=== PATIENT | male | born 1970 | race Two or more races ===

== ENCOUNTER 2023-05-12 19:24 | Inpatient (IN) | payer MEDICAID, OTHER ==
[~2023-05-12] VITALS: Ht 182.9 cm; Wt 171.0 kg
[2023-05-12 19:33] VITALS: PULSE 114; O2SAT 100
[2023-05-12 20:25] LABS: Basophils # (auto) 0.1 10 ^3/uL (0-0.2); Basophils % (auto) 0.9 % (0.0-2.0); Eosinophils # (auto) 0.3 10 ^3/uL (0-0.8); Eosinophils % (auto) 2.9 % (0.0-7.0); Hematocrit 48.4 % (41.0-53.0); Hemoglobin 15.6 g/dL (13.5-17.5); Lymphocytes # (auto) 0.4 10 ^3/uL (0.4-5.4); Lymphocytes % (auto) 4.6 % (10.0-50.0); Mean Corpuscular Hemoglobin 27.5 pg (28.0-32.0); Mean Corpuscular Hgb Conc. 32.3 g/dL (32.0-36.0); Mean Corpuscular Volume 85.3 fL (80.0-100.0); Monocytes # (auto) 0.6 10 ^3/uL (0-1.3); Monocytes % (auto) 6.6 % (0.0-12.0); Neutrophils # (auto) 7.5 10 ^3/uL (1.6-8.6); Nucleated Red Blood Cells % 0.1 %; Red Blood Cells 5.67 10^6/uL (4.5-5.90); White Blood Cell 8.8 10^3/uL (4.4-10.8)
[2023-05-12 20:39] LABS: INR 1.1 (0.9-1.15); Partial Thromboplastin Time 34.7 SEC (24.5-34.5); Prothrombin Time 11.5 sec (9.3-11.8)
[2023-05-12 20:41] LABS: Alanine Aminotransferase 33 U/L (7-40); Albumin 4.2 g/dL (3.2-4.8); Alkaline Phosphatase 116 U/L (46-116); Anion Gap 5 (5-15); Aspartate Aminotransferase 29 U/L (13-40); BUN/Creatinine Ratio 19.3 (10.0-20.0); Blood Urea Nitrogen 26 mg/dL (9-23); Calcium 9.1 mg/dL (8.7-10.4); Carbon Dioxide 31 mmol/L (20-30); Chloride 103 mmol/L (98-107); Glucose 131 mg/dL (74-106); Magnesium 2.2 mg/dL (1.6-2.6); Potassium 4.7 mmol/L (3.5-5.1); Sodium 139 mmol/L (136-145)
[2023-05-12 20:42] LABS: Bilirubin, Total 1.2 mg/dL (0.2-1.0); Total Protein 6.8 g/dL (5.7-8.2)
[2023-05-12 21:03] VITALS: BP 156/76; PULSE 129; O2SAT 100
[2023-05-12 21:11] LABS: Base Excess 0.1 mmol/L (-2.0-2.0)
[2023-05-12] MEDS ORDERED: ONDANSETRON HCL 4 MG/2 ML VIAL IV ONE (21:45)
[2023-05-12] MEDS ORDERED: IPRATROPIUM BROM 0.5 MG/2.5ML INH SOL NEB ONE (21:45)
[2023-05-12] MEDS ORDERED: MORPHINE SULFATE 4 MG/ML SYR/VIAL IV ONE (21:45)
[2023-05-12] MEDS ORDERED: SODIUM CHLORIDE 0.9% 1,000 ML IV ONE (21:45)
[2023-05-12] MEDS ORDERED: ALBUTEROL MEDNEB 2.5 mg/3ml NEB NEB ONE (21:45)
[2023-05-12 21:55] VITALS: PULSE 118; RESP 24; O2SAT 99
[2023-05-12] MEDS: MAGNESIUM SULFATE 1GM/100ML 100 ML IV SCH (22:09)
[2023-05-12 22:36] VITALS: PULSE 118; RESP 28; O2SAT 99
[2023-05-13] VITALS (10 sets, daily range): BP systolic 117–158; BP diastolic 58–103; PULSE 92–140; RESP 22–24; TEMP 98.6; O2SAT 94–100
[2023-05-13] MEDS: MAGNESIUM SULFATE 1GM/100ML 100 ML IV SCH (00:43)
[2023-05-13] MEDS ORDERED: MORPHINE SULFATE INJ 2 MG/ml SYRG IV PRN (01:00)
[2023-05-13] MEDS ORDERED: TEMAZEPAM 15 MG CAP PO PRN (01:00)
[2023-05-13] MEDS ORDERED: NITROGLYCERIN 0.4 MG SL TAB SL PRN (01:00)
[2023-05-13] MEDS ORDERED: ONDANSETRON HCL 4 MG/2 ML VIAL IV PRN (01:00)
[2023-05-13] MEDS ORDERED: ACETAMINOPHEN 325 MG TAB PO PRN (01:00)
[2023-05-13] MEDS ORDERED: dilTIAZem 25 MG/5 ML VIAL IV ONE (03:30)
[2023-05-13] MEDS ORDERED: FUROSEMIDE 40 MG/4 ML VIAL IV ONE (06:45)
[2023-05-13] MEDS: LEVOTHYROXINE SODIUM 25 MCG TAB PO SCH (07:05)
[2023-05-13] MEDS: IPRATROPIUM BROM 0.5 MG/2.5ML INH SOL NEB PRN ×2 (07:08→22:36)
[2023-05-13] MEDS: ALBUTEROL MEDNEB 2.5 mg/3ml NEB NEB PRN ×2 (07:08→22:36)
[2023-05-13] MEDS ORDERED: AMIODARONE 450mg/250ml AE 250 ML IV SCH (08:15)
[2023-05-13] MEDS ORDERED: AMIODARONE BOLUS KIT 100 ML IV ONE (08:15)
[2023-05-13] MEDS: METOPROLOL SUCCINATE XL 50 MG TAB PO SCH (09:01)
[2023-05-13] MEDS: APIXABAN 5 MG TAB PO SCH ×2 (09:01→22:38)
[2023-05-13] MEDS: SERTRALINE HCL 50 MG TAB PO SCH (09:02)
[2023-05-13] MEDS ORDERED: FUROSEMIDE 40 MG TAB PO SCH (10:00)
[2023-05-13] MEDS ORDERED: ASPirin 81 mg TAB PO SCH (10:00)
[2023-05-13] MEDS ORDERED: SPIRONOLACTONE 25 MG TAB PO ONE (11:15)
[2023-05-13] MEDS ORDERED: AZITHROMYCIN 500MG/ 250ML 250 ML IV ONE (11:30)
[2023-05-13 11:39] LABS: Basophils # (auto) 0.1 10 ^3/uL (0-0.2); Basophils % (auto) 1.2 % (0.0-2.0); Eosinophils # (auto) 0.1 10 ^3/uL (0-0.8); Eosinophils % (auto) 1.5 % (0.0-7.0); Hematocrit 47.4 % (41.0-53.0); Lymphocytes # (auto) 0.6 10 ^3/uL (0.4-5.4); Lymphocytes % (auto) 6.5 % (10.0-50.0); Mean Corpuscular Hemoglobin 27.2 pg (28.0-32.0); Mean Corpuscular Hgb Conc. 31.7 g/dL (32.0-36.0); Mean Corpuscular Volume 85.7 fL (80.0-100.0); Monocytes # (auto) 0.9 10 ^3/uL (0-1.3); Monocytes % (auto) 9.4 % (0.0-12.0); Neutrophils % (auto) 81.4 % (37.0-80.0); Nucleated Red Blood Cells % 0.7 %; Red Blood Cells 5.54 10^6/uL (4.5-5.90); Red Cell Distribution Width 19.7 % (11.8-14.3); White Blood Cell 9.8 10^3/uL (4.4-10.8)
[2023-05-13] MEDS: ASPirin 81 mg TAB PO SCH (11:45)
[2023-05-13] MEDS: FUROSEMIDE 20 MG/2 ML VIAL IV SCH ×2 (11:48→18:46)
[2023-05-13 11:52] LABS: Urine Bacteria NONE SEEN /hpf (None Seen); Urine Blood Negative /uL (Negative); Urine Clarity Clear (Clear); Urine Color Yellow (Yellow); Urine Protein, UAD 2+ (Negative); Urine Specific Gravity 1.017 (1.001-1.035); Urine Urobilinogen Normal (Negative); Urine WBC 2 /hpf (0 - 3); Urine pH 5.5 (5.0-8.0)
[2023-05-13 12:00] LABS: Calcium 8.9 mg/dL (8.5-10.1); Chloride 102 mmol/L (98-107); Potassium 4.7 mmol/L (3.5-5.1); Sodium 135 mmol/L (136-145)
[2023-05-13 12:01] LABS: Anion Gap 8 (5-15); Carbon Dioxide 25 mmol/L (20-30)
[2023-05-13 12:06] LABS: BUN/Creatinine Ratio 20.5 (10.0-20.0); Blood Urea Nitrogen 33 mg/dL (9-23); Glucose 226 mg/dL (74-106)
[2023-05-13] MEDS: AMIODARONE 450mg/250ml AE 250 ML IV SCH (14:28)
[2023-05-13] MEDS: DOXYCYCLINE 100MG/250ML 250 ML IV SCH (14:45)
[2023-05-13] MEDS ORDERED: ACETAMINOPHEN 500 MG TAB PO PRN (15:30)
[2023-05-13] MEDS ORDERED: HYDROcodone-ACET 5/325MG TAB PO PRN (15:30)
[2023-05-13] MEDS ORDERED: FUROSEMIDE 20 MG/2 ML VIAL IV SCH (18:00)
[2023-05-13] MEDS: HYDROcodone-ACET 10/325MG TAB PO PRN (22:37)
[2023-05-13] MEDS: methylPREDNISolone SOD SUCC 40 MG/ML VL IV SCH (22:38)
[2023-05-13] MEDS: SACUBITRIL-VALSARTAN 24mg/26mg TAB PO SCH (22:39)
[2023-05-13] MEDS: ATORVASTATIN 20 MG TAB PO SCH (22:39)
[2023-05-14] VITALS (8 sets, daily range): BP systolic 134–145; BP diastolic 74–97; PULSE 82–103; RESP 18–22; O2SAT 94–100
[2023-05-14] MEDS: DOXYCYCLINE 100MG/250ML 250 ML IV SCH ×2 (00:39→12:13)
[2023-05-14] MEDS: AMIODARONE 450mg/250ml AE 250 ML IV SCH ×2 (05:41→10:56)
[2023-05-14 06:41] LABS: Basophils # (auto) 0 10 ^3/uL (0-0.2); Basophils % (auto) 0.5 % (0.0-2.0); Eosinophils # (auto) 0 10 ^3/uL (0-0.8); Eosinophils % (auto) 0.2 % (0.0-7.0); Hematocrit 46.6 % (41.0-53.0); Lymphocytes # (auto) 0.4 10 ^3/uL (0.4-5.4); Lymphocytes % (auto) 5.6 % (10.0-50.0); Mean Corpuscular Hemoglobin 27.4 pg (28.0-32.0); Mean Corpuscular Hgb Conc. 32.2 g/dL (32.0-36.0); Mean Corpuscular Volume 85.1 fL (80.0-100.0); Monocytes # (auto) 0.2 10 ^3/uL (0-1.3); Neutrophils % (auto) 91.7 % (37.0-80.0); Nucleated Red Blood Cells % 0.9 %; Red Blood Cells 5.48 10^6/uL (4.5-5.90); Red Cell Distribution Width 19.7 % (11.8-14.3); White Blood Cell 7.6 10^3/uL (4.4-10.8)
[2023-05-14 06:59] LABS: Alanine Aminotransferase 28 U/L (7-40); Albumin 4.3 g/dL (3.2-4.8); Alkaline Phosphatase 114 U/L (46-116); Anion Gap 8 (5-15); Aspartate Aminotransferase 21 U/L (13-40); BUN/Creatinine Ratio 22.8 (10.0-20.0); Blood Urea Nitrogen 42 mg/dL (9-23); Calcium 8.8 mg/dL (8.7-10.4); Carbon Dioxide 24 mmol/L (20-30); Chloride 103 mmol/L (98-107); Glucose 247 mg/dL (74-106); Potassium 4.9 mmol/L (3.5-5.1); Sodium 135 mmol/L (136-145)
[2023-05-14] MEDS: FUROSEMIDE 20 MG/2 ML VIAL IV SCH ×2 (06:59→18:25)
[2023-05-14] MEDS: LEVOTHYROXINE SODIUM 25 MCG TAB PO SCH (06:59)
[2023-05-14] MEDS: HYDROcodone-ACET 10/325MG TAB PO PRN (07:08)
[2023-05-14 07:37] LABS: Base Excess -1.9 mmol/L (-2.0-2.0)
[2023-05-14] MEDS ORDERED: AZITHROMYCIN 500MG/ 250ML 250 ML IV SCH (10:00)
[2023-05-14] MEDS: methylPREDNISolone SOD SUCC 40 MG/ML VL IV SCH ×2 (10:56→22:37)
[2023-05-14] MEDS: SERTRALINE HCL 50 MG TAB PO SCH (10:57)
[2023-05-14] MEDS: APIXABAN 5 MG TAB PO SCH ×2 (10:57→23:20)
[2023-05-14] MEDS: ASPirin 81 mg TAB PO SCH (10:58)
[2023-05-14] MEDS: SPIRONOLACTONE 25 MG TAB PO SCH (10:58)
[2023-05-14] MEDS: METOPROLOL SUCCINATE XL 50 MG TAB PO SCH (11:00)
[2023-05-14] MEDS: SACUBITRIL-VALSARTAN 24mg/26mg TAB PO SCH ×2 (11:08→22:38)
[2023-05-14] MEDS: IPRATROPIUM BROM 0.5 MG/2.5ML INH SOL NEB PRN (18:39)
[2023-05-14] MEDS: ALBUTEROL MEDNEB 2.5 mg/3ml NEB NEB PRN (18:39)
[2023-05-14] MEDS: ATORVASTATIN 20 MG TAB PO SCH (22:38)
[2023-05-15] VITALS (17 sets, daily range): BP systolic 129–136; BP diastolic 71–82; PULSE 52–110; RESP 18–24; TEMP 97.4–98; O2SAT 91–100
[2023-05-15] MEDS: AMIODARONE 450mg/250ml AE 250 ML IV SCH (03:22)
[2023-05-15] MEDS: FUROSEMIDE 20 MG/2 ML VIAL IV SCH ×2 (06:00→17:25)
[2023-05-15 06:30] LABS: Anion Gap 7 (5-15); Carbon Dioxide 27 mmol/L (20-30); Chloride 100 mmol/L (98-107); Potassium 4.8 mmol/L (3.5-5.1); Sodium 134 mmol/L (136-145)
[2023-05-15 06:31] LABS: Calcium 9.2 mg/dL (8.5-10.1)
[2023-05-15 06:35] LABS: Basophils # (auto) 0 10 ^3/uL (0-0.2); Basophils % (auto) 0.2 % (0.0-2.0); Eosinophils # (auto) 0 10 ^3/uL (0-0.8); Hematocrit 43.7 % (41.0-53.0); Hemoglobin 14.3 g/dL (13.5-17.5); Lymphocytes # (auto) 0.5 10 ^3/uL (0.4-5.4); Lymphocytes % (auto) 6.1 % (10.0-50.0); Mean Corpuscular Hemoglobin 27.5 pg (28.0-32.0); Mean Corpuscular Hgb Conc. 32.7 g/dL (32.0-36.0); Mean Corpuscular Volume 84.2 fL (80.0-100.0); Monocytes # (auto) 0.2 10 ^3/uL (0-1.3); Monocytes % (auto) 2.2 % (0.0-12.0); Neutrophils # (auto) 7.1 10 ^3/uL (1.6-8.6); Neutrophils % (auto) 91.5 % (37.0-80.0); Nucleated Red Blood Cells % 0.6 %; Red Blood Cells 5.19 10^6/uL (4.5-5.90); Red Cell Distribution Width 18.9 % (11.8-14.3); White Blood Cell 7.8 10^3/uL (4.4-10.8)
[2023-05-15 06:36] LABS: BUN/Creatinine Ratio 26.1 (10.0-20.0); Blood Urea Nitrogen 49 mg/dL (9-23)
[2023-05-15] MEDS: LEVOTHYROXINE SODIUM 25 MCG TAB PO SCH (06:58)
[2023-05-15 07:01] LABS: Glucose 369 mg/dL (74-106)
[2023-05-15] MEDS: HYDROcodone-ACET 10/325MG TAB PO PRN ×3 (07:03→21:40)
[2023-05-15] MEDS ORDERED: ISOS5TAB PO (07:28)
[2023-05-15] MEDS ORDERED: APIX5TAB PO (07:28)
[2023-05-15] MEDS ORDERED: FURO40TA4 PO (07:28)
[2023-05-15] MEDS ORDERED: METO-289 PO (07:28)
[2023-05-15] MEDS ORDERED: POTA10TA51 PO (07:28)
[2023-05-15] MEDS ORDERED: DAPA1TAB4 PO (07:28)
[2023-05-15] MEDS ORDERED: HYDR-4798 PO (07:28)
[2023-05-15] MEDS ORDERED: SERT25TA84 PO (07:28)
[2023-05-15] MEDS ORDERED: SACU1TAB PO (07:28)
[2023-05-15] MEDS: IPRATROPIUM BROM 0.5 MG/2.5ML INH SOL NEB PRN ×3 (07:32→22:07)
[2023-05-15] MEDS: ALBUTEROL MEDNEB 2.5 mg/3ml NEB NEB PRN ×3 (07:32→22:08)
[2023-05-15] MEDS: ASPirin 81 mg TAB PO SCH (09:19)
[2023-05-15] MEDS: methylPREDNISolone SOD SUCC 40 MG/ML VL IV SCH ×2 (09:19→21:39)
[2023-05-15] MEDS: APIXABAN 5 MG TAB PO SCH ×2 (09:19→21:39)
[2023-05-15] MEDS: SERTRALINE HCL 50 MG TAB PO SCH (09:19)
[2023-05-15] MEDS: METOPROLOL SUCCINATE XL 50 MG TAB PO SCH (09:19)
[2023-05-15] MEDS: SPIRONOLACTONE 25 MG TAB PO SCH (09:19)
[2023-05-15 10:33] LABS: Platelet Estimate Decreased
[2023-05-15 10:34] LABS: Large Platelets FEW
[2023-05-15] MEDS: DOXYCYCLINE 100MG/250ML 250 ML IV SCH ×2 (12:04)
[2023-05-15] MEDS ORDERED: ALBUTEROL SULF 2.5 MG/0.5ML(0.5%) NEB SOLN ONE ×2 (14:00→22:07)
[2023-05-15] MEDS ORDERED: DEXTROSE (50%) 50ML SYRG IV PRN (20:45)
[2023-05-15] MEDS: AMIODARONE HCL 200 MG TAB PO SCH (21:39)
[2023-05-15] MEDS: ATORVASTATIN 20 MG TAB PO SCH (21:39)
[2023-05-15] MEDS: ACCU-CHEK COMFORT CURVE STRIP VI SCH (21:40)
[2023-05-15] MEDS: InsuLIN REG 1unit/0.01ml Soln (100units/ml) SC SCH (21:45)
[2023-05-16] VITALS (11 sets, daily range): BP systolic 121–134; BP diastolic 41–94; PULSE 53–102; RESP 18–22; TEMP 36.7; O2SAT 94–99
[2023-05-16] MEDS: DOXYCYCLINE 100MG/250ML 250 ML IV SCH (02:01)
[2023-05-16] MEDS ORDERED: ALBUTEROL SULF 2.5 MG/0.5ML(0.5%) NEB SOLN ONE (05:56)
[2023-05-16] MEDS: ACCU-CHEK COMFORT CURVE STRIP VI SCH ×2 (06:36→11:54)
[2023-05-16] MEDS: FUROSEMIDE 20 MG/2 ML VIAL IV SCH (06:36)
[2023-05-16] MEDS: HYDROcodone-ACET 10/325MG TAB PO PRN (06:37)
[2023-05-16] MEDS: LEVOTHYROXINE SODIUM 25 MCG TAB PO SCH (06:37)
[2023-05-16] MEDS: InsuLIN REG 1unit/0.01ml Soln (100units/ml) SC SCH ×2 (06:42→11:30)
[2023-05-16 06:52] LABS: Anion Gap 8 (5-15); Carbon Dioxide 24 mmol/L (20-30); Chloride 98 mmol/L (98-107); Sodium 130 mmol/L (136-145)
[2023-05-16 06:53] LABS: Calcium 9.2 mg/dL (8.5-10.1)
[2023-05-16 06:58] LABS: BUN/Creatinine Ratio 27.4 (10.0-20.0); Blood Urea Nitrogen 45 mg/dL (9-23); Glucose 346 mg/dL (74-106)
[2023-05-16 07:02] LABS: Basophils # (auto) 0 10 ^3/uL (0-0.2); Basophils % (auto) 0.1 % (0.0-2.0); Eosinophils # (auto) 0 10 ^3/uL (0-0.8); Hematocrit 42.4 % (41.0-53.0); Hemoglobin 13.8 g/dL (13.5-17.5); Lymphocytes # (auto) 0.5 10 ^3/uL (0.4-5.4); Lymphocytes % (auto) 5.8 % (10.0-50.0); Mean Corpuscular Hemoglobin 27.4 pg (28.0-32.0); Mean Corpuscular Hgb Conc. 32.6 g/dL (32.0-36.0); Mean Corpuscular Volume 83.9 fL (80.0-100.0); Monocytes # (auto) 0.2 10 ^3/uL (0-1.3); Neutrophils # (auto) 8.7 10 ^3/uL (1.6-8.6); Neutrophils % (auto) 92.1 % (37.0-80.0); Nucleated Red Blood Cells % 0.3 %; Red Blood Cells 5.06 10^6/uL (4.5-5.90); Red Cell Distribution Width 18.5 % (11.8-14.3); White Blood Cell 9.4 10^3/uL (4.4-10.8)
[2023-05-16] MEDS: ALBUTEROL MEDNEB 2.5 mg/3ml NEB NEB PRN (07:41)
[2023-05-16] MEDS: IPRATROPIUM BROM 0.5 MG/2.5ML INH SOL NEB PRN (07:41)
[2023-05-16] MEDS: AMIODARONE HCL 200 MG TAB PO SCH (08:59)
[2023-05-16] MEDS: APIXABAN 5 MG TAB PO SCH (08:59)
[2023-05-16] MEDS: methylPREDNISolone SOD SUCC 40 MG/ML VL IV SCH (08:59)
[2023-05-16] MEDS: SPIRONOLACTONE 25 MG TAB PO SCH (08:59)
[2023-05-16] MEDS: ASPirin 81 mg TAB PO SCH (09:00)
[2023-05-16] MEDS: SERTRALINE HCL 50 MG TAB PO SCH (09:00)
[2023-05-16] MEDS: METOPROLOL SUCCINATE XL 50 MG TAB PO SCH (09:00)
[2023-05-16] MEDS ORDERED: GUAI-41 PO (11:56)
== END 2023-05-16 13:39 | disposition home or self-care (01) | DRG 133 ==
LOC: ER 19:24 → EDBD 19:24 → TELE 05-13 00:58 → TELE-WESTW 05-14 21:59
PROVIDERS: ADMIT Internal Medicine; ATTEND Student in an Organized Health Care Education/Training Program
PROC: 5A09357 Assistance with Respiratory Ventilation, Less than 24 Consecutive Hours, Continuous Positive Airway Pressure (ICD-10-PCS; principal; 2023-05-12)
PROC: 5A09357 Assistance with Respiratory Ventilation, Less than 24 Consecutive Hours, Continuous Positive Airway Pressure (ICD-10-PCS; 2023-05-13)
PROC: 5A09357 Assistance with Respiratory Ventilation, Less than 24 Consecutive Hours, Continuous Positive Airway Pressure (ICD-10-PCS; 2023-05-14)
PROC: 5A09357 Assistance with Respiratory Ventilation, Less than 24 Consecutive Hours, Continuous Positive Airway Pressure (ICD-10-PCS; 2023-05-15)
PROC: 5A09357 Assistance with Respiratory Ventilation, Less than 24 Consecutive Hours, Continuous Positive Airway Pressure (ICD-10-PCS; 2023-05-16)
DX: J96.21 Acute and chronic respiratory failure with hypoxia (principal); N17.0 Acute kidney failure with tubular necrosis; I21.A1 Myocardial infarction type 2; I50.23 Acute on chronic systolic (congestive) heart failure; Z68.43 Body mass index [BMI] 50.0-59.9, adult; I13.0 Hypertensive heart and chronic kidney disease with heart failure and stage 1 through stage 4 chronic kidney disease, or unspecified chronic kidney disease; J44.1 Chronic obstructive pulmonary disease with (acute) exacerbation; E66.2 Morbid (severe) obesity with alveolar hypoventilation; E11.22 Type 2 diabetes mellitus with diabetic chronic kidney disease; I48.91 Unspecified atrial fibrillation; E78.5 Hyperlipidemia, unspecified; N18.30 Chronic kidney disease, stage 3 unspecified
CPT/HCPCS: 36415; 36600; 71045; 80048; 80053; 81001; 82805; 82962; 83735; 83880; 84484; 85025; 85379; 85610; 85730; 87081; 93005; 94640; 94660; G0378; J1815; J2405; J3490

== ENCOUNTER 2023-06-29 23:07 | Inpatient (IN) | payer MEDICAID ==
[~2023-06-29] VITALS: Ht 182.9 cm; Wt 173.0 kg
[~2023-06-29 23:07] MED LIST: APIX5TAB PO; DAPA1TAB4 PO; FURO40TA4 PO; GUAI-41 PO; HYDR-4798 PO; ISOS5TAB PO; METO-289 PO; POTA10TA51 PO; SACU1TAB PO; SERT25TA84 PO
[2023-06-29 23:58] LABS: Chloride 105 mmol/L (98-107); Potassium 4.1 mmol/L (3.5-5.1); Sodium 139 mmol/L (136-145)
[2023-06-29 23:59] LABS: Anion Gap 5 (5-15); Carbon Dioxide 29 mmol/L (20-30)
[2023-06-30] LABS: Basophils # (auto) 0.1 10 ^3/uL (0-0.2); Eosinophils # (auto) 0.7 10 ^3/uL (0-0.8); Eosinophils % (auto) 7.6 % (0.0-7.0); Hematocrit 46.4 % (41.0-53.0); Hemoglobin 15.1 g/dL (13.5-17.5); Lymphocytes # (auto) 1.4 10 ^3/uL (0.4-5.4); Lymphocytes % (auto) 15.5 % (10.0-50.0); Mean Corpuscular Hemoglobin 27.7 pg (28.0-32.0); Mean Corpuscular Hgb Conc. 32.5 g/dL (32.0-36.0); Mean Corpuscular Volume 85.5 fL (80.0-100.0); Monocytes # (auto) 0.5 10 ^3/uL (0-1.3); Monocytes % (auto) 5.5 % (0.0-12.0); Neutrophils # (auto) 6.3 10 ^3/uL (1.6-8.6); Neutrophils % (auto) 70.4 % (37.0-80.0); Nucleated Red Blood Cells % 0.7 %; Red Blood Cells 5.43 10^6/uL (4.5-5.90); White Blood Cell 8.9 10^3/uL (4.4-10.8)
[2023-06-30 00:04] LABS: Blood Urea Nitrogen 20 mg/dL (9-23); Glucose 158 mg/dL (74-106)
[2023-06-30 00:15] LABS: Red Cell Distribution Width 21.9 % (11.8-14.3)
[2023-06-30 00:16] LABS: INR 1.12 (0.9-1.15); Partial Thromboplastin Time 36.7 SEC (24.5-34.5); Prothrombin Time 11.7 sec (9.3-11.8)
[2023-06-30] MEDS ORDERED: ONDANSETRON HCL 4 MG/2 ML VIAL IV PRN (09:30)
[2023-06-30] MEDS ORDERED: ACETAMINOPHEN 325 MG TAB PO PRN (09:30)
[2023-06-30] MEDS ORDERED: DOCUSATE SOD 100 MG CAP PO PRN (09:30)
[2023-06-30] MEDS ORDERED: ALBUTEROL SULF 2.5 MG/0.5ML(0.5%) NEB SOLN NEB PRN (09:45)
[2023-06-30] MEDS ORDERED: IPRATROPIUM BROM 0.5 MG/2.5ML INH SOL NEB PRN (09:45)
[2023-06-30] MEDS ORDERED: SODIUM CHLORIDE 0.9% 1,000 ML IV ONE (09:45)
[2023-06-30] MEDS ORDERED: ATOR40TA52 PO (09:46)
[2023-06-30] MEDS ORDERED: SACUBITRIL-VALSARTAN 24mg/26mg TAB PO SCH (10:00)
[2023-06-30 10:40] VITALS: O2SAT 97
[2023-06-30 11:03] VITALS: BP 127/94; PULSE 56; RESP 18; TEMP 98.3; O2SAT 97
[2023-06-30] MEDS: METOPROLOL SUCCINATE XL 50 MG TAB PO SCH (12:04)
[2023-06-30] MEDS: ENOXAPARIN SOD 40 MG/0.4 ML SYRINGE SC SCH (12:05)
[2023-06-30 12:08] VITALS: PULSE 78; RESP 16; O2SAT 98
[2023-06-30 13:59] LABS: Rapid Influenza A Negative (Negative); Rapid Influenza B Negative (Negative)
[2023-06-30 14:00] LABS: COVID19 ANTIGEN SOFIA FIA NEGATIVE (NEGATIVE)
[2023-06-30] MEDS ORDERED: HYDR-4072 PO (16:37)
[2023-06-30 19:02] VITALS: PULSE 80; RESP 18; O2SAT 93
[2023-06-30] MEDS: IPRATROPIUM BROM 0.5 MG/2.5ML INH SOL NEB SCH (19:02)
[2023-06-30] MEDS: ALBUTEROL SULF 2.5 MG/0.5ML(0.5%) NEB SOLN NEB SCH (19:02)
[2023-06-30] MEDS: methylPREDNISolone SOD SUCC 40 MG/ML VL IV SCH ×2 (19:06→23:55)
[2023-06-30 19:08] VITALS: PULSE 82; RESP 18; O2SAT 99
[2023-06-30] MEDS: SACUBITRIL-VALSARTAN 24mg/26mg TAB PO SCH (21:50)
[2023-06-30] MEDS: ATORVASTATIN 20 MG TAB PO SCH (21:50)
[2023-06-30] MEDS: HYDROcodone-ACET 10/325MG TAB PO PRN (21:50)
[2023-06-30] MEDS: FUROSEMIDE 40 MG TAB PO SCH (21:51)
[2023-07-01] VITALS (17 sets, daily range): BP systolic 116–147; BP diastolic 62–84; PULSE 57–97; RESP 16–20; TEMP 36.7; O2SAT 96–99
[2023-07-01] MEDS: ALBUTEROL SULF 2.5 MG/0.5ML(0.5%) NEB SOLN NEB SCH ×4 (00:11→18:27)
[2023-07-01] MEDS: IPRATROPIUM BROM 0.5 MG/2.5ML INH SOL NEB SCH ×4 (00:11→18:27)
[2023-07-01] MEDS ORDERED: LEVO100T8 PO (01:45)
[2023-07-01] MEDS ORDERED: INSU1INJ19 SC (01:45)
[2023-07-01] MEDS: FUROSEMIDE 40 MG TAB PO SCH (06:26)
[2023-07-01] MEDS: methylPREDNISolone SOD SUCC 40 MG/ML VL IV SCH ×2 (06:26→21:20)
[2023-07-01] MEDS: HYDROcodone-ACET 10/325MG TAB PO PRN ×2 (06:31→21:19)
[2023-07-01 06:33] LABS: Basophils # (auto) 0.1 10 ^3/uL (0-0.2); Basophils % (auto) 0.5 % (0.0-2.0); Eosinophils # (auto) 0.1 10 ^3/uL (0-0.8); Eosinophils % (auto) 0.8 % (0.0-7.0); Hematocrit 45.6 % (41.0-53.0); Hemoglobin 15.2 g/dL (13.5-17.5); Lymphocytes # (auto) 0.6 10 ^3/uL (0.4-5.4); Lymphocytes % (auto) 5.6 % (10.0-50.0); Mean Corpuscular Hemoglobin 28.3 pg (28.0-32.0); Mean Corpuscular Hgb Conc. 33.3 g/dL (32.0-36.0); Mean Corpuscular Volume 85.2 fL (80.0-100.0); Monocytes # (auto) 0.1 10 ^3/uL (0-1.3); Monocytes % (auto) 1.4 % (0.0-12.0); Neutrophils # (auto) 9.5 10 ^3/uL (1.6-8.6); Neutrophils % (auto) 91.7 % (37.0-80.0); Nucleated Red Blood Cells % 0.2 %; Red Blood Cells 5.35 10^6/uL (4.5-5.90); White Blood Cell 10.3 10^3/uL (4.4-10.8)
[2023-07-01 06:52] LABS: Alanine Aminotransferase 17 U/L (7-40); Alkaline Phosphatase 105 U/L (46-116); BUN/Creatinine Ratio 13.5 (10.0-20.0); Blood Urea Nitrogen 23 mg/dL (9-23); Calcium 9.1 mg/dL (8.5-10.1); Chloride 106 mmol/L (98-107); Glucose 216 mg/dL (74-106); Potassium 4.4 mmol/L (3.5-5.1); Sodium 137 mmol/L (136-145)
[2023-07-01 06:53] LABS: Albumin 4.3 g/dL (3.2-4.8); Aspartate Aminotransferase 25 U/L (13-40)
[2023-07-01 06:54] LABS: Total Protein 7.2 g/dL (5.7-8.2)
[2023-07-01 07:12] LABS: Anion Gap 9 (5-15); Carbon Dioxide 22 mmol/L (20-30)
[2023-07-01 07:22] LABS: Red Cell Distribution Width 21.1 % (11.8-14.3)
[2023-07-01 09:09] LABS: Platelet Estimate Decreased
[2023-07-01 09:10] LABS: Giant Platelets Few
[2023-07-01] MEDS: ENOXAPARIN SOD 40 MG/0.4 ML SYRINGE SC SCH (09:44)
[2023-07-01] MEDS: SACUBITRIL-VALSARTAN 24mg/26mg TAB PO SCH ×2 (09:44→21:20)
[2023-07-01] MEDS: METOPROLOL SUCCINATE XL 50 MG TAB PO SCH (09:45)
[2023-07-01] MEDS: ISOSORBIDE DINITRATE 10 MG TAB PO SCH (09:45)
[2023-07-01] MEDS: POTASSIUM CHL 10 Meq TABLET PO SCH (09:46)
[2023-07-01] MEDS: AZITHROMYCIN 500MG/ 250ML 250 ML IV SCH (09:46)
[2023-07-01] MEDS: SERTRALINE HCL 50 MG TAB PO SCH (09:46)
[2023-07-01] MEDS ORDERED: DEXTROSE (50%) 50ML SYRG IV PRN (12:00)
[2023-07-01 16:44] LABS: Base Excess -1.9 mmol/L (-2.0-2.0)
[2023-07-01] MEDS: ACCU-CHEK COMFORT CURVE STRIP VI SCH ×2 (17:09→21:20)
[2023-07-01] MEDS: InsuLIN REG 1unit/0.01ml Soln (100units/ml) SC SCH ×2 (17:19→21:09)
[2023-07-01] MEDS: FUROSEMIDE 40 MG/4 ML VIAL IV SCH (18:49)
[2023-07-01] MEDS: ATORVASTATIN 20 MG TAB PO SCH (21:19)
[2023-07-01] MEDS ORDERED: INSULIN LANTUS (GLARGINE) 1 /0.01ml (100units/ml) SC SCH (22:00)
[2023-07-02] VITALS (12 sets, daily range): BP systolic 109–114; BP diastolic 56–81; PULSE 78–87; RESP 16–21; TEMP 97.7–98.8; O2SAT 9–100
[2023-07-02] MEDS: ALBUTEROL SULF 2.5 MG/0.5ML(0.5%) NEB SOLN NEB SCH ×3 (00:23→11:48)
[2023-07-02] MEDS: IPRATROPIUM BROM 0.5 MG/2.5ML INH SOL NEB SCH ×3 (00:23→11:48)
[2023-07-02] MEDS: FUROSEMIDE 40 MG/4 ML VIAL IV SCH (06:11)
[2023-07-02] MEDS: InsuLIN REG 1unit/0.01ml Soln (100units/ml) SC SCH ×3 (06:19→17:00)
[2023-07-02] MEDS: HYDROcodone-ACET 10/325MG TAB PO PRN ×2 (06:20→14:23)
[2023-07-02 06:38] LABS: Basophils # (auto) 0 10 ^3/uL (0-0.2); Basophils % (auto) 0.1 % (0.0-2.0); Eosinophils # (auto) 0 10 ^3/uL (0-0.8); Hematocrit 44.3 % (41.0-53.0); Hemoglobin 14.7 g/dL (13.5-17.5); Lymphocytes # (auto) 0.8 10 ^3/uL (0.4-5.4); Lymphocytes % (auto) 7.5 % (10.0-50.0); Mean Corpuscular Hemoglobin 28.1 pg (28.0-32.0); Mean Corpuscular Hgb Conc. 33.3 g/dL (32.0-36.0); Mean Corpuscular Volume 84.4 fL (80.0-100.0); Monocytes # (auto) 0.3 10 ^3/uL (0-1.3); Monocytes % (auto) 2.4 % (0.0-12.0); Neutrophils # (auto) 9.8 10 ^3/uL (1.6-8.6); Nucleated Red Blood Cells % 0.9 %; Red Blood Cells 5.25 10^6/uL (4.5-5.90); White Blood Cell 10.8 10^3/uL (4.4-10.8)
[2023-07-02 06:41] LABS: Alanine Aminotransferase 22 U/L (7-40); Albumin 4.2 g/dL (3.2-4.8); Alkaline Phosphatase 91 U/L (46-116); Anion Gap 6 (5-15); Aspartate Aminotransferase 19 U/L (13-40); BUN/Creatinine Ratio 16.7 (10.0-20.0); Blood Urea Nitrogen 26 mg/dL (9-23); Calcium 9.3 mg/dL (8.5-10.1); Carbon Dioxide 28 mmol/L (20-30); Chloride 102 mmol/L (98-107); Glucose 190 mg/dL (74-106); Potassium 4.4 mmol/L (3.5-5.1); Sodium 136 mmol/L (136-145)
[2023-07-02 06:42] LABS: Total Protein 6.9 g/dL (5.7-8.2)
[2023-07-02] MEDS: ACCU-CHEK COMFORT CURVE STRIP VI SCH ×3 (07:00→17:00)
[2023-07-02 07:25] LABS: Red Cell Distribution Width 21.6 % (11.8-14.3)
[2023-07-02] MEDS ORDERED: DOXY-448 PO (09:55)
[2023-07-02] MEDS ORDERED: PRED20TA2 PO (09:55)
[2023-07-02] MEDS: AZITHROMYCIN 500MG/ 250ML 250 ML IV SCH (10:04)
[2023-07-02] MEDS: methylPREDNISolone SOD SUCC 40 MG/ML VL IV SCH (10:04)
[2023-07-02] MEDS: ISOSORBIDE DINITRATE 10 MG TAB PO SCH (10:04)
[2023-07-02] MEDS: SACUBITRIL-VALSARTAN 24mg/26mg TAB PO SCH (10:05)
[2023-07-02] MEDS: METOPROLOL SUCCINATE XL 50 MG TAB PO SCH (10:05)
[2023-07-02] MEDS: POTASSIUM CHL 10 Meq TABLET PO SCH (10:05)
[2023-07-02] MEDS: SERTRALINE HCL 50 MG TAB PO SCH (10:05)
[2023-07-02] MEDS: ENOXAPARIN SOD 40 MG/0.4 ML SYRINGE SC SCH (10:05)
[2023-07-02] MEDS ORDERED: DOXYCYCLINE 100 MG TAB/CAP PO SCH (22:00)
== END 2023-07-02 17:04 | disposition home or self-care (01) | DRG 145 ==
LOC: ER 23:07 → OVERFLOW 06-30 09:39 → WEST WING 07-01 01:32
PROVIDERS: ADMIT Internal Medicine Pulmonary Disease; ATTEND Internal Medicine Pulmonary Disease
PROC: 5A09357 Assistance with Respiratory Ventilation, Less than 24 Consecutive Hours, Continuous Positive Airway Pressure (ICD-10-PCS; principal; 2023-07-01)
PROC: 5A09357 Assistance with Respiratory Ventilation, Less than 24 Consecutive Hours, Continuous Positive Airway Pressure (ICD-10-PCS; 2023-07-02)
DX: J20.9 Acute bronchitis, unspecified (principal); J96.21 Acute and chronic respiratory failure with hypoxia; I50.23 Acute on chronic systolic (congestive) heart failure; J15.69 Pneumonia due to other Gram-negative bacteria; I42.9 Cardiomyopathy, unspecified; J15.9 Unspecified bacterial pneumonia; N17.9 Acute kidney failure, unspecified; E66.2 Morbid (severe) obesity with alveolar hypoventilation; J44.0 Chronic obstructive pulmonary disease with (acute) lower respiratory infection; I13.0 Hypertensive heart and chronic kidney disease with heart failure and stage 1 through stage 4 chronic kidney disease, or unspecified chronic kidney disease; Z68.43 Body mass index [BMI] 50.0-59.9, adult; E11.22 Type 2 diabetes mellitus with diabetic chronic kidney disease; N18.30 Chronic kidney disease, stage 3 unspecified; E78.5 Hyperlipidemia, unspecified; I48.91 Unspecified atrial fibrillation; J44.1 Chronic obstructive pulmonary disease with (acute) exacerbation; Z99.81 Dependence on supplemental oxygen; Z79.01 Long term (current) use of anticoagulants; Z82.49 Family history of ischemic heart disease and other diseases of the circulatory system; Z79.4 Long term (current) use of insulin
CPT/HCPCS: 36415; 36600; 71045; 71250; 80048; 80053; 82805; 82962; 83036; 84484; 85025; 85379; 85610; 85730; 86141; 87426; 87804; 93306; 94640; 94660; 99291; G0378; J1815

== ENCOUNTER 2023-11-14 17:21 | Inpatient (IN) | payer MEDICAID ==
[~2023-11-14] VITALS: Ht 182.9 cm; Wt 187.1 kg
[~2023-11-14 17:21] MED LIST changes: +ALBU108A5 INH; +ATOR40TA52 PO; -GUAI-41 PO; +HYDR-4072 PO; -HYDR-4798 PO; +IBUP-1455 PO; +INSU1INJ19 SC; +IPRA0.00 NEB; +LEVO100T8 PO; +LEVO500T91 PO; +POTA-36 PO; -POTA10TA51 PO
[2023-11-14 18:54] LABS: Basophils # (auto) 0.1 10 ^3/uL (0-0.2); Basophils % (auto) 0.9 % (0.0-2.0); Eosinophils # (auto) 0.2 10 ^3/uL (0-0.8); Eosinophils % (auto) 2.7 % (0.0-7.0); Hemoglobin 12.3 g/dL (13.5-17.5); Lymphocytes # (auto) 0.7 10 ^3/uL (0.4-5.4); Lymphocytes % (auto) 9.4 % (10.0-50.0); Mean Corpuscular Hemoglobin 25.7 pg (28.0-32.0); Mean Corpuscular Hgb Conc. 30.8 g/dL (32.0-36.0); Mean Corpuscular Volume 83.4 fL (80.0-100.0); Monocytes # (auto) 0.5 10 ^3/uL (0-1.3); Monocytes % (auto) 7.3 % (0.0-12.0); Neutrophils # (auto) 5.7 10 ^3/uL (1.6-8.6); Neutrophils % (auto) 79.7 % (37.0-80.0); Nucleated Red Blood Cells % 0.1 %; Red Blood Cells 4.79 10^6/uL (4.5-5.90); Red Cell Distribution Width 19.3 % (11.8-14.3); White Blood Cell 7.2 10^3/uL (4.4-10.8)
[2023-11-14 19:14] LABS: Alanine Aminotransferase 33 U/L (7-40); Albumin 3.9 g/dL (3.2-4.8); Alkaline Phosphatase 112 U/L (46-116); Anion Gap 5 (5-15); Aspartate Aminotransferase 25 U/L (13-40); BUN/Creatinine Ratio 20.3 (10.0-20.0); Blood Urea Nitrogen 36 mg/dL (9-23); Calcium 9.1 mg/dL (8.5-10.1); Carbon Dioxide 29 mmol/L (20-30); Chloride 108 mmol/L (98-107); Glucose 197 mg/dL (74-106); Sodium 142 mmol/L (136-145)
[2023-11-14 19:15] LABS: Bilirubin, Total 0.6 mg/dL (0.2-1.0); Total Protein 6.1 g/dL (5.7-8.2)
[2023-11-14 19:24] LABS: Large Platelets FEW; Platelet Estimate Decreased
[2023-11-14 19:35] LABS: Lipase 30 U/L (12-53)
[2023-11-14 20:55] LABS: Urine Bacteria None Seen /hpf (None Seen)
[2023-11-14 21:14] LABS: Urine Blood Negative /uL (Negative); Urine Clarity Clear (Clear); Urine Color Light-Yellow (Yellow); Urine Protein, UAD TRACE (Negative); Urine Urobilinogen Normal (Negative); Urine WBC 4 /hpf (0 - 3)
[2023-11-15] VITALS (17 sets, daily range): BP systolic 116–151; BP diastolic 71–96; PULSE 76–109; RESP 16–20; TEMP 97.9–99.2; O2SAT 94–100
[2023-11-15] MEDS ORDERED: ONDANSETRON HCL 4 MG/2 ML VIAL IV PRN (02:00)
[2023-11-15] MEDS ORDERED: ACETAMINOPHEN 325 MG TAB PO PRN (02:00)
[2023-11-15] MEDS ORDERED: MORPHINE SULFATE INJ 2 MG/ml SYRG IV PRN ×2 (02:00→02:15)
[2023-11-15] MEDS ORDERED: DOCUSATE SOD 100 MG CAP PO PRN (02:00)
[2023-11-15] MEDS ORDERED: DEXTROSE (50%) 50ML SYRG IV PRN (02:00)
[2023-11-15] MEDS ORDERED: NITROGLYCERIN 0.4 MG SL TAB SL PRN (02:15)
[2023-11-15] MEDS: ALBUTEROL SULF 2.5 MG/0.5ML(0.5%) NEB SOLN NEB PRN (03:21)
[2023-11-15 04:04] LABS: Basophils # (auto) 0.1 10 ^3/uL (0-0.2); Eosinophils # (auto) 0.2 10 ^3/uL (0-0.8); Hemoglobin 13.3 g/dL (13.5-17.5); Monocytes # (auto) 0.6 10 ^3/uL (0-1.3); White Blood Cell 8.2 10^3/uL (4.4-10.8)
[2023-11-15 04:07] LABS: Basophils % (auto) 1.1 % (0.0-2.0); Eosinophils % (auto) 2.1 % (0.0-7.0); Hematocrit 41.5 % (41.0-53.0); Lymphocytes # (auto) 0.8 10 ^3/uL (0.4-5.4); Lymphocytes % (auto) 9.7 % (10.0-50.0); Mean Corpuscular Hemoglobin 26.7 pg (28.0-32.0); Mean Corpuscular Volume 83.3 fL (80.0-100.0); Neutrophils # (auto) 6.6 10 ^3/uL (1.6-8.6); Neutrophils % (auto) 80.1 % (37.0-80.0); Nucleated Red Blood Cells % 0.5 %; Red Blood Cells 4.98 10^6/uL (4.5-5.90); Red Cell Distribution Width 19.4 % (11.8-14.3)
[2023-11-15 04:35] LABS: Alanine Aminotransferase 34 U/L (7-40); Albumin 4.2 g/dL (3.2-4.8); Alkaline Phosphatase 118 U/L (46-116); Anion Gap 6 (5-15); BUN/Creatinine Ratio 19.8 (10.0-20.0); Blood Urea Nitrogen 35 mg/dL (9-23); Calcium 9.2 mg/dL (8.5-10.1); Carbon Dioxide 28 mmol/L (20-30); Chloride 108 mmol/L (98-107); Glucose 137 mg/dL (74-106); Potassium 4.1 mmol/L (3.5-5.1); Sodium 142 mmol/L (136-145)
[2023-11-15 04:36] LABS: Aspartate Aminotransferase 25 U/L (13-40); Bilirubin, Total 0.8 mg/dL (0.2-1.0); Total Protein 6.6 g/dL (5.7-8.2)
[2023-11-15 05:41] LABS: Giant Platelets Few; Platelet Estimate Decreased
[2023-11-15] MEDS: ACCU-CHEK COMFORT CURVE STRIP VI SCH (07:14)
[2023-11-15] MEDS: LEVOTHYROXINE SODIUM 100 MCG TAB PO SCH (07:21)
[2023-11-15] MEDS: SODIUM CHLOR 0.9% PF (SALINE LOCK) 10ML VIAL/SYR IV SCH (07:21)
[2023-11-15] MEDS: InsuLIN REG 1unit/0.01ml Soln (100units/ml) SC SCH ×2 (07:22→21:58)
[2023-11-15] MEDS: HYDROmorphone HCL 2 MG/ML VL/or syr IM ONE (08:52)
[2023-11-15] MEDS: FUROSEMIDE 40 MG/4 ML VIAL IV ONE (08:52)
[2023-11-15] MEDS: cefTRIAXone 1GM/50ML D5W 50 ML IV ONE (08:52)
[2023-11-15] MEDS: HYDROcodone-ACET 5/325MG TAB PO PRN (10:03)
[2023-11-15] MEDS: CARVEDILOL 3.125 MG TAB PO SCH ×2 (10:03→18:17)
[2023-11-15] MEDS: FUROSEMIDE 40 MG/4 ML VIAL IV SCH (10:04)
[2023-11-15] MEDS: APIXABAN 5 MG TAB PO SCH ×2 (10:05→21:41)
[2023-11-15] MEDS: metroNIDAZOLE 500MG/100ML 100 ML IV ONE (11:00)
[2023-11-15] MEDS ORDERED: metroNIDAZOLE 500MG/100ML 100 ML IV SCH (14:00)
[2023-11-15] MEDS: IPRATROPIUM BROM 0.5 MG/2.5ML INH SOL NEB SCH (18:09)
[2023-11-15] MEDS: PANTOPRAZOLE 40 MG TAB PO ONE (18:18)
[2023-11-15] MEDS: ISOSORBIDE DINITRATE 10 MG TAB PO SCH (18:19)
[2023-11-15] MEDS: INSULIN LANTUS (GLARGINE) 1 /0.01ml (100units/ml) SC SCH (18:24)
[2023-11-15] MEDS: metroNIDAZOLE 500 MG TAB PO SCH (21:40)
[2023-11-15] MEDS: ATORVASTATIN 20 MG TAB PO SCH (21:41)
[2023-11-15] MEDS: cefTRIAXone 1GM/50ML D5W 50 ML IV SCH (21:46)
[2023-11-15] MEDS ORDERED: ATORVASTATIN 20 MG TAB PO SCH (22:00)
[2023-11-16] VITALS (18 sets, daily range): BP systolic 114–133; BP diastolic 57–90; PULSE 54–98; RESP 16–20; TEMP 96.7–98.6; O2SAT 94–100
[2023-11-16] MEDS: PANTOPRAZOLE 40 MG TAB PO SCH (06:01)
[2023-11-16 06:48] LABS: Alanine Aminotransferase 31 U/L (7-40); Albumin 3.9 g/dL (3.2-4.8); Alkaline Phosphatase 110 U/L (46-116); Anion Gap 9 (5-15); Aspartate Aminotransferase 20 U/L (13-40); BUN/Creatinine Ratio 17.3 (10.0-20.0); Bilirubin, Total 0.8 mg/dL (0.2-1.0); Blood Urea Nitrogen 27 mg/dL (9-23); Calcium 9.3 mg/dL (8.7-10.4); Carbon Dioxide 27 mmol/L (20-30); Chloride 108 mmol/L (98-107); Glucose 134 mg/dL (74-106); Potassium 4.4 mmol/L (3.5-5.1); Sodium 144 mmol/L (136-145); Total Protein 6.5 g/dL (5.7-8.2)
[2023-11-16 08:45] LABS: Basophils # (auto) 0.1 10 ^3/uL (0-0.2); Basophils % (auto) 0.7 % (0.0-2.0); Eosinophils # (auto) 0.3 10 ^3/uL (0-0.8); Eosinophils % (auto) 3.7 % (0.0-7.0); Hematocrit 42.2 % (41.0-53.0); Hemoglobin 13.4 g/dL (13.5-17.5); Lymphocytes # (auto) 0.6 10 ^3/uL (0.4-5.4); Lymphocytes % (auto) 9.4 % (10.0-50.0); Mean Corpuscular Hemoglobin 27.1 pg (28.0-32.0); Mean Corpuscular Hgb Conc. 31.7 g/dL (32.0-36.0); Mean Corpuscular Volume 85.3 fL (80.0-100.0); Monocytes # (auto) 0.6 10 ^3/uL (0-1.3); Neutrophils # (auto) 5.4 10 ^3/uL (1.6-8.6); Neutrophils % (auto) 78.2 % (37.0-80.0); Nucleated Red Blood Cells % 0.4 %; Red Blood Cells 4.95 10^6/uL (4.5-5.90); Red Cell Distribution Width 19.3 % (11.8-14.3); White Blood Cell 6.9 10^3/uL (4.4-10.8)
[2023-11-16] MEDS ORDERED: ENOXAPARIN SOD 40 MG/0.4 ML SYRINGE SC SCH (10:00)
[2023-11-16] MEDS: FUROSEMIDE 40 MG/4 ML VIAL IV SCH (17:48)
[2023-11-17] VITALS (18 sets, daily range): BP systolic 103–143; BP diastolic 69–88; PULSE 72–94; RESP 16–20; TEMP 97.5–98.3; O2SAT 92–100
[2023-11-17 05:57] LABS: Basophils # (auto) 0 10 ^3/uL (0-0.2); Eosinophils # (auto) 0.2 10 ^3/uL (0-0.8); Lymphocytes # (auto) 0.6 10 ^3/uL (0.4-5.4); White Blood Cell 5.5 10^3/uL (4.4-10.8)
[2023-11-17 06:01] LABS: Basophils % (auto) 0.9 % (0.0-2.0); Eosinophils % (auto) 3.5 % (0.0-7.0); Hematocrit 37.8 % (41.0-53.0); Hemoglobin 11.9 g/dL (13.5-17.5); Lymphocytes % (auto) 10.4 % (10.0-50.0); Mean Corpuscular Hemoglobin 26.4 pg (28.0-32.0); Mean Corpuscular Hgb Conc. 31.6 g/dL (32.0-36.0); Mean Corpuscular Volume 83.7 fL (80.0-100.0); Monocytes # (auto) 0.3 10 ^3/uL (0-1.3); Monocytes % (auto) 6.3 % (0.0-12.0); Neutrophils # (auto) 4.4 10 ^3/uL (1.6-8.6); Neutrophils % (auto) 78.9 % (37.0-80.0); Nucleated Red Blood Cells % 0.1 %; Red Blood Cells 4.51 10^6/uL (4.5-5.90); Red Cell Distribution Width 18.8 % (11.8-14.3)
[2023-11-17 06:14] LABS: Anion Gap 7 (5-15); Carbon Dioxide 30 mmol/L (20-30); Chloride 106 mmol/L (98-107); Potassium 4.1 mmol/L (3.5-5.1); Sodium 143 mmol/L (136-145)
[2023-11-17 06:20] LABS: BUN/Creatinine Ratio 22.3 (10.0-20.0); Glucose 133 mg/dL (74-106)
[2023-11-17 06:23] LABS: Blood Urea Nitrogen 39 mg/dL (9-23)
[2023-11-17 08:24] LABS: Large Platelets FEW; Platelet Estimate Decreased
[2023-11-17] MEDS: FUROSEMIDE 100 MG/10ML VIAL IV SCH (21:56)
[2023-11-17] MEDS ORDERED: FUROSEMIDE 40 MG/4 ML VIAL IV SCH (22:00)
[2023-11-18] VITALS (19 sets, daily range): BP systolic 101–127; BP diastolic 71–79; PULSE 65–98; RESP 15–20; TEMP 97.6–99.1; O2SAT 92–100
[2023-11-18 05:56] LABS: Basophils # (auto) 0.1 10 ^3/uL (0-0.2); Eosinophils # (auto) 0.2 10 ^3/uL (0-0.8); Eosinophils % (auto) 4.4 % (0.0-7.0); Lymphocytes # (auto) 0.6 10 ^3/uL (0.4-5.4); Monocytes # (auto) 0.4 10 ^3/uL (0-1.3); Neutrophils # (auto) 4.1 10 ^3/uL (1.6-8.6); Red Cell Distribution Width 18.9 % (11.8-14.3); White Blood Cell 5.3 10^3/uL (4.4-10.8)
[2023-11-18 06:01] LABS: Hematocrit 37.7 % (41.0-53.0); Lymphocytes % (auto) 10.4 % (10.0-50.0); Mean Corpuscular Hemoglobin 26.6 pg (28.0-32.0); Mean Corpuscular Hgb Conc. 31.8 g/dL (32.0-36.0); Mean Corpuscular Volume 83.6 fL (80.0-100.0); Monocytes % (auto) 7.1 % (0.0-12.0); Neutrophils % (auto) 77.1 % (37.0-80.0); Nucleated Red Blood Cells % 0.4 %; Red Blood Cells 4.51 10^6/uL (4.5-5.90)
[2023-11-18 06:54] LABS: Chloride 105 mmol/L (98-107); Potassium 4.8 mmol/L (3.5-5.1); Sodium 143 mmol/L (136-145)
[2023-11-18 06:58] LABS: Anion Gap 8 (5-15); Carbon Dioxide 30 mmol/L (20-30)
[2023-11-18 07:03] LABS: Blood Urea Nitrogen 39 mg/dL (9-23); Glucose 88 mg/dL (74-106)
[2023-11-18 07:33] LABS: BUN/Creatinine Ratio 21.5 (10.0-20.0)
[2023-11-18] MEDS ORDERED: VANCOMYCIN PER PHARMACY 0 MG IV SCH (09:15)
[2023-11-18] MEDS ORDERED: ISOS1TAB37 PO (10:05)
[2023-11-18] MEDS ORDERED: SERT-160 PO (10:05)
[2023-11-18] MEDS ORDERED: SEMA2INJ3 SC (10:09)
[2023-11-18] MEDS ORDERED: HYDR-2792 PO (10:09)
[2023-11-18] MEDS ORDERED: CARV3.1240 PO (10:09)
[2023-11-18] MEDS ORDERED: UMEC1AER IN (10:09)
[2023-11-18] MEDS ORDERED: ASPI-543 PO (10:09)
[2023-11-18] MEDS ORDERED: FURO40TA4 PO (10:09)
[2023-11-18] MEDS: VANCOMYCIN 1GM/200ML 200 ML IV ONE (13:29)
[2023-11-19] MEDS ORDERED: VANCOMYCIN 1GM/200ML 200 ML IV SCH (01:00)
== END 2023-11-18 19:33 | disposition home health service (06) | DRG 385 ==
LOC: ER 17:21 → TELE 11-15 02:16 → TELE-CENTR 11-15 09:22
PROVIDERS: ADMIT Internal Medicine; ATTEND Internal Medicine
PROC: 5A09357 Assistance with Respiratory Ventilation, Less than 24 Consecutive Hours, Continuous Positive Airway Pressure (ICD-10-PCS; principal; 2023-11-15)
PROC: 5A09357 Assistance with Respiratory Ventilation, Less than 24 Consecutive Hours, Continuous Positive Airway Pressure (ICD-10-PCS; 2023-11-16)
PROC: 5A09357 Assistance with Respiratory Ventilation, Less than 24 Consecutive Hours, Continuous Positive Airway Pressure (ICD-10-PCS; 2023-11-17)
PROC: 5A09357 Assistance with Respiratory Ventilation, Less than 24 Consecutive Hours, Continuous Positive Airway Pressure (ICD-10-PCS; 2023-11-18)
DX: M79.3 Panniculitis, unspecified (principal); J96.21 Acute and chronic respiratory failure with hypoxia; I50.23 Acute on chronic systolic (congestive) heart failure; L03.115 Cellulitis of right lower limb; K80.00 Calculus of gallbladder with acute cholecystitis without obstruction; D69.6 Thrombocytopenia, unspecified; J81.1 Chronic pulmonary edema; L03.116 Cellulitis of left lower limb; R16.2 Hepatomegaly with splenomegaly, not elsewhere classified; M86.672 Other chronic osteomyelitis, left ankle and foot; L03.311 Cellulitis of abdominal wall; E11.69 Type 2 diabetes mellitus with other specified complication; I13.0 Hypertensive heart and chronic kidney disease with heart failure and stage 1 through stage 4 chronic kidney disease, or unspecified chronic kidney disease; D64.9 Anemia, unspecified; E11.22 Type 2 diabetes mellitus with diabetic chronic kidney disease; E11.65 Type 2 diabetes mellitus with hyperglycemia; E66.01 Morbid (severe) obesity due to excess calories; I25.10 Atherosclerotic heart disease of native coronary artery without angina pectoris; N39.0 Urinary tract infection, site not specified; N18.32 Chronic kidney disease, stage 3b; I48.91 Unspecified atrial fibrillation; E78.5 Hyperlipidemia, unspecified; J44.9 Chronic obstructive pulmonary disease, unspecified; I87.8 Other specified disorders of veins; K40.90 Unilateral inguinal hernia, without obstruction or gangrene, not specified as recurrent; G47.33 Obstructive sleep apnea (adult) (pediatric); Z95.5 Presence of coronary angioplasty implant and graft; Z68.43 Body mass index [BMI] 50.0-59.9, adult; Z82.49 Family history of ischemic heart disease and other diseases of the circulatory system; Z83.3 Family history of diabetes mellitus; Z80.1 Family history of malignant neoplasm of trachea, bronchus and lung; Z82.3 Family history of stroke
CPT/HCPCS: 36415; 74176; 76705; 78226; 80048; 80053; 81001; 82306; 82962; 83605; 83690; 83735; 83880; 83970; 84100; 84443; 84484; 85025; 87040; 87081; 87086; 87088; 94640; 94660; G0378; J1815